=== PATIENT | female | born 1945 | race Hispanic/Latino ===

== ENCOUNTER → 2025-07-29 | Outpatient (REF) | payer MEDICARE ==
[~2025-07-29] MED LIST: ALENDRONATE SOD70 MG PO; ASPIRIN EC81 MG PO; CEFDINIR300 MG PO; CIPRO500 MG PO; GABAPENTIN300 MG PO; GENVOYA PO; HYDROXYZINE HCL10 MG PO; HYZAAR 50-12.51 EACH PO; KEFLEX500 MG PO; LASIX20 MG PO; LEVAQUIN500 MG PO; LOPRESSOR25 MG PO; LOSARTAN-HCTZ1 EAC1 PO; METOPROLOL SUCC25 MG; METOPROLOL SUCC25 MG PO; MODERIBA PO; NABUMETONE500 MG PO; NIFEDIPINE ER30 M1 PO; NORVIR100 MG PO; PREZISTA600 MG PO; RIBAVIRIN200 M1 PO; TOPROL XL25 MG PO; TRUVADA 200 MG1 EACH PO; TYLENOL WITH C1 EACH PO; ULTRAM50 MG PO; [UNRECOGNIZED DRUG - OTHER]
== END ==
LOC: RAD 12:50
PROVIDERS: ATTEND Specialist/Technologist, Other Surgical Technologist
DX: M54.12 Radiculopathy, cervical region (principal)
CPT/HCPCS: 72040